=== PATIENT | female | born 1990 | race Hispanic/Latino ===

== ENCOUNTER 2021-11-27 21:42 | Day surgery (SDC) | payer MEDICAID, OTHER ==
[2021-11-27] MEDS ORDERED: hydrALAZINE 20 MG/ML VIAL SLOW IVP PRN (23:44)
[2021-11-27] MEDS ORDERED: Lactated Ringer's 1,000 ML IV SCH (23:45)
== END 2021-11-28 02:15 | disposition home or self-care (01) ==
LOC: CSHLD/OP 21:42
PROVIDERS: ATTEND Obstetrics & Gynecology
DX: O47.1 False labor at or after 37 completed weeks of gestation (principal); Z3A.38 38 weeks gestation of pregnancy; Z98.890 Other specified postprocedural states
CPT/HCPCS: 76816; 84112; 86922; 99283

== ENCOUNTER 2021-11-29 05:39 | Inpatient (IN) | payer MEDICAID, OTHER, SELFPAY ==
[2021-11-27 23:13] LABS: Fetal Membranes Rupture No Membranes Rupture (No Rupture)
[2021-11-28 02:04] LABS: Hemoglobin 12.4 g/dL (12.0-15.5); Mean Corpuscular HGB CONC 33.2 g/dL (32.0-36.0); Mean Corpuscular Hemoglobin 29.2 pg (27.0-33.0); Mean Corpuscular Volume 87.8 fl (81.6-98.3); Mean Platelet Volume 10.6 fl (7.4-10.4); Platelet Count 275 10x3/uL (150-450); RBC Distribution Width 14.6 % (11.5-14.5); Red Blood Cell (RBC) Count 4.25 10x6/uL (3.90-5.03); White Blood Cell (WBC) Count 9.3 10x3/uL (3.5-10.5)
[2021-11-28 02:36] LABS: HBSAg Index 0.21 S/CO (0-0.99); Hep B Surf Ag Non-Reactive S/CO (NonReactive)
[2021-11-28 02:36] LABS: Syphilis Antibody Nonreactive (Nonreactive); Syphilis Antibody Index 0.08 S/CO (<1.00 Non-Reactive)
[2021-11-29] MEDS: Lactated Ringer's 1,000 ML IV SCH ×4 (06:23→18:58)
[2021-11-29] MEDS ORDERED: CEFAZOLIN 2 GM VIAL ONE (06:43)
[2021-11-29] MEDS ORDERED: Promethazine HCl 25 MG/ML VIAL IM PRN ×3 (06:49→13:00)
[2021-11-29] MEDS ORDERED: Bicitra 30 ML UDCUP PO PRN (06:49)
[2021-11-29] MEDS ORDERED: hydrALAZINE 20 MG/ML VIAL SLOW IVP PRN ×2 (06:49→13:00)
[2021-11-29] MEDS ORDERED: Famotidine/PF 20 mg/2ml Vial SLOW IVP PRN (06:49)
[2021-11-29] MEDS ORDERED: Ondansetron PF 4 MG/2 ML Vial IVP PRN ×3 (06:49→13:00)
[2021-11-29] MEDS ORDERED: CEFAZOLIN 2 GM in Sodium Chloride 0.9% 100 ML IVPB SCH (07:00)
[2021-11-29] MEDS ORDERED: Ketorolac Tromethamine 30 MG/ML VIAL ONE (07:18)
[2021-11-29] MEDS ORDERED: Oxytocin 10 UNITS/ML VIAL ONE (07:18)
[2021-11-29] MEDS ORDERED: PHENYLEPHRINE-NS 100 MCG/ML 10 ML SYRINGE ONE (07:18)
[2021-11-29] MEDS ORDERED: Metoclopramide HCl 10 MG/2 ML VIAL ONE (07:19)
[2021-11-29] MEDS ORDERED: Dexamethasone 4 mg/ml Vial ONE (07:19)
[2021-11-29] MEDS ORDERED: Ondansetron PF 4 MG/2 ML Vial ONE (07:19)
[2021-11-29] MEDS ORDERED: Phenylephrine 40 MG/NS 250 ML 250 ML ONE (07:20)
[2021-11-29] MEDS ORDERED: Morphine PF 10 MG/10 ML VIAL ONE (07:21)
[2021-11-29 07:30] VITALS: BMI 25.4
[2021-11-29] MEDS ORDERED: Succinylcholine 200 MG/10 ml SYRINGE FS ONE (08:06)
[2021-11-29] MEDS ORDERED: PROPOFOL 20 ML ONE (08:06)
[2021-11-29] MEDS ORDERED: Tranexamic Acid 1,000 MG/10 ML VIAL ONE (08:21)
[2021-11-29] MEDS ORDERED: Fentanyl 100 MCG/2 ML VIAL ONE (09:06)
[2021-11-29] MEDS ORDERED: Fentanyl 100 MCG/2 ML VIAL SLOW IVP PRN (09:22)
[2021-11-29] MEDS ORDERED: diphenhydrAMINE 50 MG/ML VIAL IVP PRN (09:22)
[2021-11-29] MEDS ORDERED: Meperidine HCl/PF 25 MG/ML VIAL SLOW IVP PRN (09:22)
[2021-11-29] MEDS ORDERED: Promethazine HCl 25 MG SUPP PR PRN (09:22)
[2021-11-29] MEDS ORDERED: Naloxone HCl 0.4 mg/ml Vial IVP PRN ×2 (09:22)
[2021-11-29] MEDS ORDERED: Moisturizing Cream (Eucerin) 113 GM JAR TOP PRN (09:22)
[2021-11-29] MEDS ORDERED: Ondansetron HCl/PF 4 MG/2 ML Vial IVP PRN (09:22)
[2021-11-29] MEDS ORDERED: Naloxone HCl 0.4 mg/ml Vial IV PRN (09:22)
[2021-11-29] MEDS ORDERED: fentaNYL Citrate/PF 2,000 MCG in Sodium Chloride 0.9% 60 ML IV PRN (09:23)
[2021-11-29] MEDS ORDERED: Communication Order-Pharmacy FS SCH (09:30)
[2021-11-29] MEDS ORDERED: Communication Order-Pharmacy FS PRN (09:36)
[2021-11-29] MEDS ORDERED: Misoprostol 200 MCG TAB PR SCH (10:00)
[2021-11-29] MEDS ORDERED: Methylergonovine 0.2 MG/ML VIAL IM SCH (10:00)
[2021-11-29] MEDS ORDERED: fentaNYL Citrate/PF 1,000 MCG, Admixture Fee 1 EACH in Sodium Chloride 0.9% 30 ML IV PRN (10:00)
[2021-11-29] MEDS ORDERED: Tranexamic Acid 1,000 MG in Sodium Chloride 0.9% 250 ML 250 ML IVPB SCH (10:00)
[2021-11-29] MEDS ORDERED: Misoprostol 200 MCG TAB ONE (10:03)
[2021-11-29] MEDS ORDERED: Boostrix 0.5 ML (Tdap) VIAL (>/=7 yrs of age) IM ONE (13:00)
[2021-11-29] MEDS ORDERED: HYDROcodone/Acetaminophen 5/325 mg Tablet PO PRN ×2 (13:00)
[2021-11-29] MEDS ORDERED: Bisacodyl 10 MG SUPP PR PRN (13:00)
[2021-11-29] MEDS ORDERED: Simethicone Chewable 80 MG TAB PO PRN (13:00)
[2021-11-29] MEDS: Acyclovir 400 mg Tablet PO SCH ×3 (13:56→21:05)
[2021-11-29] MEDS: Docusate 100 MG CAP PO SCH (21:05)
[2021-11-29] MEDS: Ferrous Sulfate 325 MG TAB PO SCH (21:08)
[2021-11-30] MEDS: Ketorolac Tromethamine 30 MG/ML VIAL IVP PRN ×2 (03:36→14:58)
[2021-11-30] MEDS: Lactated Ringer's 1,000 ML IV SCH (03:36)
[2021-11-30 06:01] LABS: Hemoglobin 8.7 g/dL (12.0-15.5); Mean Corpuscular HGB CONC 33.6 g/dL (32.0-36.0); Mean Corpuscular Hemoglobin 29.2 pg (27.0-33.0); Mean Corpuscular Volume 86.9 fl (81.6-98.3); Mean Platelet Volume 9.9 fl (7.4-10.4); Platelet Count 225 10x3/uL (150-450); RBC Distribution Width 14.5 % (11.5-14.5); Red Blood Cell (RBC) Count 2.98 10x6/uL (3.90-5.03); White Blood Cell (WBC) Count 9.9 10x3/uL (3.5-10.5)
[2021-11-30] MEDS: Bisacodyl 10 MG SUPP PR SCH ×2 (06:47→14:14)
[2021-11-30] MEDS: Simethicone Chewable 80 MG TAB PO SCH ×4 (06:47→21:40)
[2021-11-30] MEDS: Docusate 100 MG CAP PO SCH ×2 (10:09→21:39)
[2021-11-30] MEDS: Prenatal Vitamin 1 TAB PO SCH (10:09)
[2021-11-30] MEDS: Acyclovir 400 mg Tablet PO SCH ×3 (10:09→21:40)
[2021-11-30] MEDS: Ferrous Sulfate 325 MG TAB PO SCH ×2 (10:09→21:40)
[2021-11-30] MEDS: Ibuprofen 800 MG TAB PO SCH (21:39)
[2021-12-01] MEDS: Simethicone Chewable 80 MG TAB PO SCH ×4 (01:39→10:40)
[2021-12-01] MEDS: Bisacodyl 10 MG SUPP PR SCH ×2 (01:39→08:39)
[2021-12-01] MEDS: Ibuprofen 800 MG TAB PO SCH (05:37)
[2021-12-01 08:05] VITALS: TEMP 97.9
[2021-12-01] MEDS: Prenatal Vitamin 1 TAB PO SCH (08:25)
[2021-12-01] MEDS: Acyclovir 400 mg Tablet PO SCH (08:26)
[2021-12-01] MEDS: Ferrous Sulfate 325 MG TAB PO SCH (08:26)
[2021-12-01] MEDS: Docusate 100 MG CAP PO SCH (08:26)
[2021-12-01 11:30] VITALS: BP 102/61
== END 2021-12-01 14:30 | disposition home or self-care (01) | DRG 787 ==
LOC: CSHLD 05:39 → CSHPED 11:47
PROVIDERS: ADMIT Family Medicine; ATTEND Family Medicine
PROC: 10D00Z1 Extraction of Products of Conception, Low, Open Approach (ICD-10-PCS; principal; 2021-11-29)
DX: O34.211 Maternal care for low transverse scar from previous cesarean delivery (principal); B00.89 Other herpesviral infection; O36.0930 Maternal care for other rhesus isoimmunization, third trimester, not applicable or unspecified; O98.52 Other viral diseases complicating childbirth; Z3A.38 38 weeks gestation of pregnancy; Z37.0 Single live birth; Z20.822 Contact with and (suspected) exposure to COVID-19; M41.9 Scoliosis, unspecified; O99.892 Other specified diseases and conditions complicating childbirth
CPT/HCPCS: 36415; 51702; 84112; 85027; 86780; 86850; 86870; 86900; 86901; 86922; 87340; 87480; 87510; 87660; J0690; J1100; J1885; J2210; J2274; J2405; J2590; J2704; J2765; J3010; J3490; J7120; S0028; U0003; U0005

== ENCOUNTER 2022-01-02 09:17 | Emergency (ER) | payer MEDICAID, SELFPAY ==
[2022-01-02] MEDS ORDERED: Ondansetron PF 4 MG/2 ML Vial ONE (09:44)
[2022-01-02] MEDS ORDERED: Ketorolac Tromethamine 30 MG/ML VIAL ONE (09:45)
[2022-01-02 10:11] LABS: Bilirubin Neg (Negative); Blood, Urine Negative (Negative); Clarity Sl. Cloudy (Clear); Glucose, Urine (Dipstick) Normal (Negative); Ketone, Urine Negative (Negative); Leukocyte 25 (Negative); Nitrite Negative (Negative); Protein, Urine (Dipstick) Negative (Neg-Trace); Specific Gravity, Urine 1.015 (1.005-1.030); pH, Urine 6.5 (5.0-9.0)
[2022-01-02 10:15] LABS: #Eosinphils 0.2 10x3/uL (0.0-0.5); #Monocytes 0.5 10x3/uL (0.0-1.1); #Neutrophils 7.6 10x3/uL (1.5-8.4); %Basophils 0.2 % (0.0-2.0); %Eosinophils 1.8 % (0.0-6.0); %Lymphocytes 26.3 % (18.0-47.0); %Monocytes 4.1 % (0.0-10.0); %Neutrophils 67.1 % (40.0-75.0); Hemoglobin 13.1 g/dL (12.0-15.5); Mean Corpuscular HGB CONC 33.9 g/dL (32.0-36.0); Mean Corpuscular Hemoglobin 29.2 pg (27.0-33.0); Platelet Count 338 10x3/uL (150-450); RBC Distribution Width 13.6 % (11.5-14.5); Red Blood Cell (RBC) Count 4.49 10x6/uL (3.90-5.03); White Blood Cell (WBC) Count 11.3 10x3/uL (3.5-10.5)
[2022-01-02 10:21] LABS: BHCG - Serum Negative (NEGATIVE); Pregs Control Background? CLEAR/WHITE (CLR/WHITE); Pregs Control Bar Appear? YES (CONTROL BAR)
[2022-01-02 10:30] LABS: Bacteria/HPF Rare-Few HPF (None Seen); Mucous/LPF Rare LPF (<2+); RBC/HPF 0-3 HPF (0-3); Squamous Epithelial 0-3 HPF (0-3); WBC/HPF 0-3 HPF (0-3)
[2022-01-02 10:37] LABS: ALT (SGPT) 46 U/L (8-55); AST (SGOT) 29 U/L (5-34); Albumin 4.6 g/dL (3.5-5.0); Alkaline Phosphatase 121 U/L (40-110); Anion Gap 16 mmol/L (10-20); BUN (Urea Nitrogen) 8 mg/dL (7.0-18.7); Bilirubin, Total 0.7 mg/dL (0.2-1.2); Calc. Creatinine Clearance 0 mL/min (70-130); Calcium 9.3 mg/dL (7.8-10.44); Carbon Dioxide 23 mmol/L (22-29); Chloride 102 mmol/L (98-107); Estimated GFR 110; Globulin 3.2 g/dL (2.4-3.5); Glucose 102 mg/dL (70-105); Lipase 13 U/L (8-78); Potassium 4.1 mmol/L (3.5-5.1); Protein, Total 7.8 g/dL (6.0-8.3); Sodium 137 mmol/L (136-145)
== END 2022-01-02 11:05 | disposition home or self-care (01) ==
LOC: CSHERS 09:17
DX: K52.9 Noninfective gastroenteritis and colitis, unspecified (principal); N39.0 Urinary tract infection, site not specified
CPT/HCPCS: 80053; 81003; 81015; 83690; 84703; 85025; 96361; 96374; 96375; J1885; J2405